=== PATIENT | male | born 1975 | race Caucasian/White ===

== ENCOUNTER 2017-09-29 03:47 | Emergency (ER) | payer OTHER ==
[2017-09-29] MEDS ORDERED: Albuterol/Ipratropium 3.0-0.5 MG/3 ML Neb Soln NEB ONE (04:39)
--- NOTE | 2017-09-29 04:47 | EDM.PDOC ---
ED HPI GENERAL MEDICAL PROBLEM - General Chief Complaint: General Stated Complaint: COUGH Time Seen by Provider: 09/29/17 03:47 Source of Information: Reports: Patient, Family History Limitations: Reports: No Limitations - History of Present Illness INITIAL COMMENTS - FREE TEXT/NARRATIVE: 42 years old w male came -smoker-with his to the ed directly from work because of a cough. Pt has a H/o chronic bronchitis. His works at the same place. Pt stated, whenever he goes to work, he feels dizzy. Pt denies any environmental hazards exposure. No C/P no other acute medical issues. BP 112/71 RR 18 Pulse ox 96% on RA temp 36.8 pulse 86 Onset Date: 09/28/17 Onset Time: 23:05 Duration: Hour(s): Location: Reports: Chest Severity: Moderate Improves with: Reports: Medication Worsens with: Reports: Breathing - Related Data Allergies Allergy/AdvReac Type Severity Reaction Status Date / Time aspirin Allergy Vomiting Verified 09/29/17 04:04 Home Meds: Home Meds Albuterol [Proventil HFA] 1 puff INH QID PRN #1 inhaler 09/29/17 [Rx] Past Medical History HEENT History: Reports: Impaired Vision Respiratory History: Reports: Asthma - Past Surgical History GI Surgical History: Reports: Hernia Repair/Other Social & Family History - Family History Family Medical History: Unobtainable - Tobacco Use Smoking Status *Q: Current Every Day Smoker Years of Tobacco use: 25 Packs/Tins Daily: 1.5 - Caffeine Use Caffeine Use: Reports: Soda, Tea - Recreational Drug Use Recreational Drug Use: No ED ROS GENERAL - Review of Systems Review Of Systems: See Below Constitutional: Reports: No Symptoms HEENT: Reports: No Symptoms Respiratory: Reports: Cough Cardiovascular: Reports: No Symptoms Endocrine: Reports: No Symptoms GI/Abdominal: Reports: No Symptoms : Reports: No Symptoms Musculoskeletal: Reports: No Symptoms Skin: Reports: No Symptoms Neurological: Reports: No Symptoms Psychiatric: Reports: No Symptoms Hematologic/Lymphatic: Reports: No Symptoms Immunologic: Reports: No Symptoms ED EXAM, GENERAL - Physical Exam Exam: See Below Exam Limited By: No Limitations General Appearance: Alert, WD/WN, Mild Distress Eye Exam: Bilateral Eye: Normal Inspection Ears: Normal External Exam Ear Exam: Bilateral Ear: Auricle Normal Nose: Normal Inspection, Normal Mucosa, No Blood Throat/Mouth: Normal Lips, Normal Oropharynx, Normal Voice, No Airway Compromise , Other (poor dentition) Head: Atraumatic, Normocephalic Neck: Normal Inspection, Supple, Non-Tender, Full Range of Motion Respiratory/Chest: No Respiratory Distress, No Accessory Muscle Use, Chest Non- Tender, Rhonchi Cardiovascular: Normal Peripheral Pulses, Regular Rate, Rhythm, No Edema, No Gallop, No JVD, No Murmur, No Rub Peripheral Pulses: 1+: Brachial (L) GI/Abdominal: Normal Bowel Sounds, Soft, Non-Tender, No Organomegaly, No Distention, No Abnormal Bruit, No Mass, Pelvis Stable (Male) Exam: Deferred Rectal (Males) Exam: Deferred Back Exam: Normal Inspection, Full Range of Motion Extremities: Normal Inspection, Normal Range of Motion, Non-Tender, No Pedal Edema, Normal Capillary Refill Neurological: Alert, Oriented, CN II-XII Intact, Normal Cognition, Normal Gait, No Motor/Sensory Deficits Psychiatric: Normal Affect, Normal Mood Skin Exam: Warm, Dry, Intact, Normal Color, No Rash Lymphatic: No Adenopathy Course - Vital Signs Text/Narrative:: 42 years old w male came -smoker-with his to the ed directly from work because of a cough. Pt has a H/o chronic bronchitis. His works at the same place. Pt stated, whenever he goes to work, he feels dizzy. Pt denies any environmental hazards exposure. No C/P no other acute medical issues. BP 112/71 RR 18 Pulse ox 96% on RA temp 36.8 pulse 86 PE: WNWD unkempt 42 y.o.w.m with a prod cough Imaging: CXR: NAD, official report is pending labs: CBC, BMP and UA were nl Impression: Chronic bronchitis, dehydration Tx: Duoneb. water PO Reexam: Improved Plan: D/C with instructions Last Recorded V/S: Last Vital Signs Temp 36.3 C 09/29/17 05:40 Pulse 73 09/29/17 05:40 Resp 18 09/29/17 05:40 BP 136/84 09/29/17 05:40 Pulse Ox 97 09/29/17 05:40 Orthostatic Blood Pressure [ 142/94 Standing] Orthostatic Blood Pressure [ 128/91 Sitting] Orthostatic Blood Pressure [ 133/83 Supine] - Orders/Labs/Meds Orders: Active Orders 24 hr Category Date Time Status Orthostatic Vital Signs [RC] ASDIRECTED Care 09/29/17 04:39 Active RT Aerosol Therapy [RC] ASDIRECTED Care 09/29/17 04:39 Active Chest 2V [CR] Stat Exams 09/29/17 04:08 Taken URINALYSIS W/MICROSCOPIC [UA W/MICROSCOPIC] [URIN] Stat Lab 09/29/17 05:05 Ordered Labs: Laboratory Tests 09/29/17 09/29/17 09/29/17 Range/Units 04:15 04:15 05:05 WBC 7.5 (4.5-12.0) X10-3/uL RBC 4.70 (4.30-5.75) x10(6)uL Hgb 14.4 (11.5-15.5) g/dL Hct 43.4 (30.0-51.3) % MCV 92.2 (80-96) fL MCH 30.5 (27.7-33.6) pg MCHC 33.1 (32.2-35.4) g/dL RDW 13.3 (11.5-15.5) % Plt Count 290 (125-369) X10(3)uL MPV 7.2 L (7.4-10.4) fL Neut % (Auto) 68.1 (46-82) % Lymph % (Auto) 23.5 (13-37) % Jenkins % (Auto) 7.5 (4-12) % Eos % (Auto) 0 L (1.0-5.0) % Baso % (Auto) 1 (0-2) % Neut # (Auto) 4.9 (1.6-8.3) # Lymph # (Auto) 1.8 (0.6-5.0) # Jenkins # (Auto) 0.6 (0.0-1.3) # Eos # (Auto) 0.0 (0.0-0.8) # Baso # (Auto) 0.1 (0.0-0.2) # Sodium 141 (135-145) mmol/L Potassium 4.5 (3.5-5.3) mmol/L Chloride 105 (100-110) mmol/L Carbon Dioxide 30 (21-32) mmol/L BUN 16 (7-18) mg/dL Creatinine 0.9 (0.70-1.30) mg/dL Est Cr Clr Drug Dosing 109.10 mL/min Estimated GFR (MDRD) > 60 (>60) BUN/Creatinine Ratio 17.8 (9-20) Glucose 96 (80-116) mg/dL Calcium 9.5 (8.6-10.2) mg/dL Urine Color Yellow (YELLOW) Urine Appearance Clear (CLEAR) Urine pH 5.0 (5.0-6.5) Ur Specific [place] 1.010 (1.010-1.025) Urine Protein Negative (NEGATIVE) mg/dL Urine Glucose (UA) Normal (NEGATIVE) mg/dL Urine Ketones Negative (NEGATIVE) mg/dL Urine Occult Blood Negative (NEGATIVE) Urine Nitrite Negative (NEGATIVE) Urine Bilirubin Negative (NEGATIVE) Urine Urobilinogen Normal (NEGATIVE) mg/dL Ur Leukocyte Esterase Negative (NEGATIVE) Urine RBC 0-5 (0) Urine WBC 0-5 (0) Ur Squamous Epith Cells Rare (NS,R,O) Urine Bacteria Occasional H (NS) Meds: Medications Discontinued Medications Generic Name Dose Route Start Last Admin Trade Name Freq PRN Reason Stop Dose Admin Albuterol/Ipratropium 3 ml 09/29/17 04:39 09/29/17 04:42 Duoneb 3.0-0.5 Mg/3 Ml NEB 09/29/17 04:40 3 ml ONETIME ONE Administration Departure - Departure Time of Disposition: 05:33 Disposition: Home, Self-Care 01 Condition: Good Clinical Impression: Bronchitis, Dehydration, mild - Discharge Information Prescriptions: Albuterol [Proventil HFA] 1 puff INH QID PRN #1 inhaler PRN Reason: for cough Instructions: Steps to Quit Smoking, [id number], Acute Bronchitis, Adult, [id number] Referrals: PCP,None [Primary Care Provider] - Forms: ED Department Discharge, ED Return to Work/School Form Additional Instructions: Please quit tobacco use, please increase water intake, please use the Albuterol inhaler as needed, follow up with your PMD, come back if your symptoms get worse acutely - My Orders Last 24 Hours: My Active Orders 09/29/17 04:08 Chest 2V [CR] Stat 09/29/17 04:39 Orthostatic Vital Signs [RC] ASDIRECTED RT Aerosol Therapy [RC] ASDIRECTED 09/29/17 05:05 URINALYSIS W/MICROSCOPIC [UA W/MICROSCOPIC] [URIN] Stat - Assessment/Plan Last 24 Hours: My Active Orders 09/29/17 04:08 Chest 2V [CR] Stat 09/29/17 04:39 Orthostatic Vital Signs [RC] ASDIRECTED RT Aerosol Therapy [RC] ASDIRECTED 09/29/17 05:05 URINALYSIS W/MICROSCOPIC [UA W/MICROSCOPIC] [URIN] Stat
== END 2017-09-29 05:40 | disposition home or self-care (01) ==
LOC: FB.ED 03:47
DX: J42 Unspecified chronic bronchitis (principal); E86.0 Dehydration; F17.210 Nicotine dependence, cigarettes, uncomplicated; Z88.8 Allergy status to other drugs, medicaments and biological substances
CPT/HCPCS: 36415; 71046; 80048; 81001; 85025; 94640; 99285; J7620-GY